=== PATIENT | male | born 1965 | race Caucasian/White ===

== ENCOUNTER → 2016-09-24 | Day surgery (SDC) | payer OTHER ==
[~2016-09-24] MED LIST: LACTATED RINGER'S 1000 ML INJ 1,000 ML ONE; PROPOFOL 500 MG/50 ML BTL IV ONE
--- NOTE | 2016-09-24 12:15 | GIPROC ---
[facility] [address], [address] EGD PROCEDURE REPORT EXAM DATE: 09/24/2016 PATIENT NAME: Lucian Trinidad MR #: [id number] BIRTHDATE: 1965 ATTENDING: Galina Jesus MD ORDER #: [id number] ONLINE PROGRAM COORDINATOR: Kaylin Reed STATUS: outpatient INDICATIONS: The patient is a 51 yr old male here for an EGD due to occult blood positive PROCEDURE PERFORMED: EGD w/ biopsy MEDICATIONS: None and Per Anesthesia. TOPICAL ANESTHETIC: CONSENT: The patient understands the risks and benefits of the procedure and understands that these risks include, but are not limited to: sedation, allergic reaction, infection, perforation and/or bleeding. Alternative means of evaluation and treatment include, among others: physical exam, x-rays, and/or surgical intervention. The patient elects to proceed with this endoscopic procedure. medical equipment was checked for proper function. Hand hygiene and appropriate measures for infection prevention was taken. After the risks, benefits and alternatives of the procedure were thoroughly explained, Informed consent was verified, confirmed and timeout was successfully executed by the treatment team. The patient was anesthetized with topical anesthesia and the EC-3490Li ([id number]) endoscope was introduced through the mouth and advanced to the second portion of the duodenum. Retroflexed views revealed no abnormalities The gastroscope was then slowly withdrawn and removed. 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 The length of circumferential Kapadia's was 2cm (Odon C2). There was no nodular mucosa noted in the Kapadia's segment. Multiple biopsies were performed using cold forceps. Sample sent for histology. STOMACH: There was erythematous moderate gastritis in the gastric antrum. A biopsy was performed using cold forceps. Sample sent for histology. DUODENUM: The duodenal mucosa appeared normal. ADVERSE EVENTS: There were no complications. IMPRESSIONS: 1. 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 There was erythematous gastritis in the gastric antrum; biopsy was performed 3. Normal duodenal mucosa 4. Retroflexed views revealed no abnormalities RECOMMENDATIONS: 1. Await biopsy results. Biopsy results will not be ready for 7-10 days. If you don't hear from us in two weeks, call our office for biopsy results. 2. Anti-reflux regimen 3. Continue PPI 4. Avoid NSAIDS PATIENT CONDITION: stable DISPOSITION: Home REPEAT EXAM: Return 1 year EGD pending biopsy results Galina Jesus MD eSigned: Galina Jesus MD 09/24/2016 12:15 PM cc: Cricket Bloom PATIENT NAME: Lucian Trinidad MR#: [id number]
--- NOTE | 2016-09-24 12:35 | GIPROC ---
[facility] [address], [address] COLONOSCOPY PROCEDURE REPORT EXAM DATE: 09/24/2016 PATIENT NAME: Lucian Trinidad MR #: [id number] BIRTHDATE: 1965 ENDOSCOPIST: Galina Jesus MD ORDER #: [id number] CHILD SPECIALIST: Kaylin Reed STATUS: outpatient INDICATIONS: The patient is a 51 yr old male here for a colonoscopy due to heme-positive stool PROCEDURE PERFORMED: Colonoscopy with polypectomy MEDICATIONS: None and Per Anesthesia. PREP QUALITY: The [place] Bowel Prep Score was Right colon 2, Mid colon 3, and Left colon 3. Total = 8. PREP TYPE:GoLytely ESTIMATED BLOOD LOSS: None CONSENT: The patient understands the risks and benefits of the procedure and understands that these risks include, but are not limited to: sedation, allergic reaction, infection, perforation and/or bleeding. Alternative means of evaluation and treatment include, among others: physical exam, x-rays, and/or surgical intervention. The patient elects to proceed with this endoscopic procedure. medical equipment was checked for proper function. Hand hygiene and appropriate measures for infection prevention was taken. After the risks, benefits and alternatives of the procedure were thoroughly explained, Informed consent was verified, confirmed and timeout was successfully executed by the treatment team. A digital exam revealed external hemorrhoids The EC-3490Li ([id number]) endoscope was introduced through the anus and advanced to the cecum, which was identified by both the appendix and ileocecal valve. The instrument was then slowly withdrawn as the colon was fully examined. COLON FINDINGS: Moderate diverticulosis was noted in the sigmoid colon. No bleeding was noted from the diverticulosis. A polypoid shaped sessile polyp measuring 10 mm in size was found in the ascending colon. A polypectomy was performed using snare cautery. The resection was complete and the polyp tissue was completely retrieved. A polypoid shaped sessile polyp ranging between 5-9mm in size was found in the transverse colon. A polypectomy was performed using snare cautery. The resection was complete and the polyp tissue was completely retrieved. A polypoid shaped sessile polyp ranging between 5-9mm in size was found in the descending colon. A polypectomy was performed using snare cautery. The resection was complete and the polyp tissue was completely retrieved. A polypoid shaped adenomatous polyp measuring 10 mm in size was found in the sigmoid colon. A polypectomy was performed using snare cautery. The resection was complete and the polyp tissue was completely retrieved. Retroflexed views revealed internal hemorrhoids and Retroflexed views revealed small internal hemorrhoids The scope was then completely withdrawn from the patient and the procedure terminated. PROCEDURE WITHDRAWAL TIME:8minutes ADVERSE EVENTS: There were no complications. IMPRESSIONS: 1. Moderate diverticulosis was noted in the sigmoid colon 2. A sessile polyp was found in the ascending colon; polypectomy was performed using snare cautery 3. A sessile polyp ranging between 5-9mm in size was found in the transverse colon; polypectomy was performed using snare cautery 4. A sessile polyp ranging between 5-9mm in size was found in the descending colon; polypectomy was performed using snare cautery 5. An adenomatous polyp was found in the sigmoid colon; polypectomy was performed using snare cautery 6. Retroflexed views revealed internal hemorrhoids 7. Retroflexed views revealed small internal hemorrhoids 8. Revealed external hemorrhoids RECOMMENDATIONS: 1. Await biopsy results. Biopsy results will not be ready for 7-10 days. If you don't hear from us in two weeks, call our office for results. 2. Continue surveillance 3. Yearly hemoccult 4. No seeds, nuts and popcorn in diet RECALL: Return 1 year Colonoscopy, pending biopsy results Galina Jesus MD eSigned: Galina Jesus MD 09/24/2016 12:35 PM cc: Nidhi Mike [facility] PATIENT NAME: Lucian Trinidad MR#: [id number]
== END | disposition home or self-care (01) ==
LOC: ESDC 11:10
PROVIDERS: ATTEND Internal Medicine Gastroenterology
DX: K92.1 Melena (principal); K57.90 Diverticulosis of intestine, part unspecified, without perforation or abscess without bleeding; D12.2 Benign neoplasm of ascending colon; D12.3 Benign neoplasm of transverse colon; D12.4 Benign neoplasm of descending colon; D12.5 Benign neoplasm of sigmoid colon; K64.8 Other hemorrhoids; K64.4 Residual hemorrhoidal skin tags; K22.70 Barrett's esophagus without dysplasia; K29.70 Gastritis, unspecified, without bleeding
CPT/HCPCS: 00740; 00810; 43239; 45385; 88305; 88312; J3010; J7120